=== PATIENT | male | born 1960 | race Caucasian/White ===

== ENCOUNTER 2020-09-07 10:40 | Inpatient (IN) | payer MEDICARE, SELFPAY ==
[2020-09-07] VITALS (54 sets, daily range): BP systolic 148–194; BP diastolic 79–120; PULSE 63–96; RESP 12–25; TEMP 36.4–36.8; O2SAT 91–100
--- NOTE | 2020-09-07 10:53 | CT_ITS ---
WS: [id number] CT HEAD NONCONTRAST HISTORY: altered mental status TECHNIQUE: Contiguous axial imaging performed through the brain in 2.5 mm imaging. Bone and soft tiss ue windows. Sagittal and coronal reformats reviewed. All CT scans at [facility] use at ast one of these dose optimization techniques: automated exposure control; mA and/or kV adjustment pe r patient size (includes targeted exams where dose is matched to clinical indication); or iterative r econstruction. DLP: 872.98 mGy.cm COMPARISON: None available. No acute intracranial hemorrhage, midline shift or mass effect. Mild atrophy and mild chronic microvascular ischemic disease. Ventricles: Normal size with no hydrocephalus. Paranasal sinuses: As visualized are clear. Mastoid air cells: Well pneumatized. Calvarium and scalp: RIGHT frontotemporal craniotomy defect. CT/CT head wo con* [id number] IMPRESSION: 1. No acute intracranial hemorrhage or edema. 2. RIGHT frontoparietal craniotomy defect.
--- NOTE | 2020-09-07 10:53 | XR_ITS ---
WS: [id number] PORTABLE CHEST HISTORY: dyspnea/cough COMPARISON: 06/10/2009 Mild pneumonitis at the lung bases, LEFT greater than RIGHT. Normal vasculature. No pleural effusion or pneumothorax. Cardiac size: Mildly enlarged cardiac silhouette. Mediastinum/Aorta: Mild atherosclerosis aorta. No osseous abnormality seen. XR/XR chest 1V portable [id number] IMPRESSION: Mild bibasilar pneumonitis new since 06/10/2009.
--- NOTE | 2020-09-07 10:56 | ED_ITS ---
HPI - Overdose General: Chief Complaint: Overdose Stated Complaint: AMS Time Seen by Provider: 09/07/20 10:42 History of Present Illness: HPI Narrative: 60-year-old male presents to the emergency room via EMS with altered mental status. Family called after he had called him telling them he had overdosed on marijuana. When he arrived initially he was not responsive. With stimulation he became little aggressive and EMS ultimately ended up giving 2 mg Ativan. On arrival here he is aware of where he is at but is not aware of the time or conditions of how he came to be here. He really cannot tell me much about any symptoms other than he is cold. He denies any chest pain abdominal pain dysuria urgency frequency vomiting or diarrhea. MD complaint: accidental overdose Review of Systems General: Reports: ROS unobtainable due to mental status Physical Exam Const: COMMON NORMALS: no acute distress GENERAL APPEARANCE: cooperative and comfortable HENMT: COMMON NORMALS: normocephalic, atraumatic and hearing grossly normal bilaterally HEAD & SCALP: normocephalic and atraumatic Neck/C-Spine: COMMON NORMALS: no JVD Resp: COMMON NORMALS: normal respiratory effort, No retractions, No use of accessory muscles and clear to auscultation bilaterally AUSCULTATION: clear to auscultation bilaterally Cardio: COMMON NORMALS: no JVD, regular rate, regular rhythm and No murmurs present (Cardio) RATE: regular rate RHYTHM: regular rhythm GI: COMMON NORMALS: Soft to palpation and No hepatosplenomegaly present AUSCULTATION: Yes normoactive bowel sounds PALPATION: Yes Soft to palpation, No Tenderness to palpation present (GI), No Guarding due to palpation present (GI) and Yes No hepatosplenomegaly present Extremity: COMMON NORMALS: normal to inspection, capillary refill normal, no clubbing, cyanosis or edema, no calf tenderness and no pedal edema Skin: COMMON NORMALS: no rashes or lesions noted GENERAL SKIN EXAM: no rashes or lesions noted Course Vital Signs: Vital signs: Vital Signs Temperature 99.2 F 09/08/20 09:52 Pulse Rate 63 09/08/20 13:05 Respiratory Rate 20 H 09/08/20 13:05 Blood Pressure 206/94 09/08/20 13:05 Pulse Oximetry 92 09/08/20 13:00 MDM - Overdose MDM Narrative: Medical decision making narrative: She was initially difficult to arouse by EMS then became actually little bit aggressive is given Ativan while he was here after the work-up he actually got more more awake and then had a witnessed seizure that lasted for approximately 2 minutes. He was given more Ativan and loaded with Keppra. Will admit him to the ICU he has an acute metabolic encephalopathy as well. Cussed with Dr. Kwon. Lab Data: Labs: Lab Results 09/07/20 09/07/20 09/07/20 Range/Units 11:04 11:04 11:04 WBC 3.9 L (4.0-10.0) 10^3/ uL RBC 3.67 L (4.1-5.3) 10^6/u L Hgb 11.6 L (11.7-16.6) g/dL Hct 35.1 L (42.0-52.0) % MCV 95.6 H (80-94) fL MCH 31.6 (28.0-34.0) pg MCHC 33.0 (30.0-36.0) g/dL RDW 12.6 (12.1-15.1) % Plt Count 146 (130-400) 10^3/c mm MPV 12.2 H (7.4-10.4) fL Neut % (Auto) 51.1 % Lymph % (Auto) 35.8 % Dare % (Auto) 7.4 % Eos % (Auto) 4.1 % Baso % (Auto) 0.8 % Neut # (Auto) 2.00 (1.8-7.7) 10^3/u L Lymph # (Auto) 1.4 (0.8-4.8) 10^3/u L Dare # (Auto) 0.3 (0.2-0.9) 10^3/u L Eos # (Auto) 0.2 (0.0-0.8) 10^3/u L Baso # (Auto) 0.0 (0.0-0.1) 10^3/u L Nucleated RBC % (a uto) 0 % Nucleated RBCs # 0.0 /100WBC Specimen Type Sample Site ABG pH (7.35-7.45) ABG pCO2 (35-45) mmHg ABG pO2 (80.0-100.0) mmH g ABG HCO3 (22-26) mmol/L ABG O2 Saturation ABG Base Excess (-2.0-2.0) mmol/ L Logan Test A-a O2 Gradient (5-10) mmHg Hematocrit (42-52) % Hgb O2 Saturation (95-100) % Carboxyhemoglobin (0.4-20.1) %THgb Methemoglobin (0.4-1.5) % Total Hemoglobin (14-18) g/dL Ionized Calcium (1.1-1.4) mmol/L O2 Delivery Device Surface Hydrologist ID Sodium 137 (136-145) mmol/L Potassium 3.0 L (3.5-5.1) mmol/L Chloride 99 (98-107) mmol/L Carbon Dioxide 21 L (22-29) mmol/L Anion Gap 20.0 H (5-19) BUN 13 (8-23) mg/dL Creatinine 1.1 (0.7-1.2) mg/dL GFR Calculation 67.8 L (90-130) mL/min Glucose 118 H (65-115) mg/dL Calculated Osmolal ity 285 (285-295) mOsm/k g Lactic Acid (0.5-2.2) mmol/L Calcium 9.2 (8.5-10.5) mg/dL Magnesium 2.3 (1.7-2.3) mg/dL Total Bilirubin 0.2 (0.15-1.2) mg/dL AST 54 H (0-40) U/L ALT 32 (0-41) U/L Alkaline Phosphata se 51 (40-130) IU/L Creatine Kinase (39-308) U/L Total Protein 7.3 (6.6-8.7) g/dL Albumin 4.3 (3.5-5.2) g/dL Globulin 3.0 (1.3-4.6) g/dL Lipase 33 (13-60) U/L Urine Color (Yellow) Urine Appearance (CLEAR) Urine pH (5-7) Ur Specific Gravit y (1.005-1.030) Urine Protein (Negative) Urine Glucose (UA) (Normal) Urine Ketones (Negative) Urine Blood (Negative) Urine Nitrate (Negative) Urine Bilirubin (Negative) Urine Urobilinogen (Negative) mg/dL Ur Leukocyte Cass ase (Negative) Urine Opiates Scre en (Negative) ng/mL Ur Barbiturates Sc reen (Negative) ng/mL Ur Phencyclidine S crn (Negative) ng/mL Ur Amphetamines Sc reen (Negative) ng/mL U Benzodiazepines Scrn (Negative) ng/mL Urine Cocaine Scre en (Negative) ng/mL U Marijuana (THC) Screen (Negative) ng/mL Serum Ketones Negative (Negative) 09/07/20 09/07/20 09/07/20 Range/Units 11:04 11:04 11:28 WBC (4.0-10.0) 10^3/ uL RBC (4.1-5.3) 10^6/u L Hgb (11.7-16.6) g/dL Hct (42.0-52.0) % MCV (80-94) fL MCH (28.0-34.0) pg MCHC (30.0-36.0) g/dL RDW (12.1-15.1) % Plt Count (130-400) 10^3/c mm MPV (7.4-10.4) fL Neut % (Auto) % Lymph % (Auto) % Dare % (Auto) % Eos % (Auto) % Baso % (Auto) % Neut # (Auto) (1.8-7.7) 10^3/u L Lymph # (Auto) (0.8-4.8) 10^3/u L Dare # (Auto) (0.2-0.9) 10^3/u L Eos # (Auto) (0.0-0.8) 10^3/u L Baso # (Auto) (0.0-0.1) 10^3/u L Nucleated RBC % (a uto) % Nucleated RBCs # /100WBC Specimen Type Sample Site ABG pH (7.35-7.45) ABG pCO2 (35-45) mmHg ABG pO2 (80.0-100.0) mmH g ABG HCO3 (22-26) mmol/L ABG O2 Saturation ABG Base Excess (-2.0-2.0) mmol/ L Logan Test A-a O2 Gradient (5-10) mmHg Hematocrit (42-52) % Hgb O2 Saturation (95-100) % Carboxyhemoglobin (0.4-20.1) %THgb Methemoglobin (0.4-1.5) % Total Hemoglobin (14-18) g/dL Ionized Calcium (1.1-1.4) mmol/L O2 Delivery Device Surface Hydrologist ID Sodium (136-145) mmol/L Potassium (3.5-5.1) mmol/L Chloride (98-107) mmol/L Carbon Dioxide (22-29) mmol/L Anion Gap (5-19) BUN (8-23) mg/dL Creatinine (0.7-1.2) mg/dL GFR Calculation (90-130) mL/min Glucose (65-115) mg/dL Calculated Osmolal ity (285-295) mOsm/k g Lactic Acid 6.2 H* (0.5-2.2) mmol/L Calcium (8.5-10.5) mg/dL Magnesium (1.7-2.3) mg/dL Total Bilirubin (0.15-1.2) mg/dL AST (0-40) U/L ALT (0-41) U/L Alkaline Phosphata se (40-130) IU/L Creatine Kinase 1879 H* (39-308) U/L Total Protein (6.6-8.7) g/dL Albumin (3.5-5.2) g/dL Globulin (1.3-4.6) g/dL Lipase (13-60) U/L Urine Color Yellow (Yellow) Urine Appearance Clear (CLEAR) Urine pH 5 (5-7) Ur Specific Gravit y 1.020 (1.005-1.030) Urine Protein Neg (Negative) Urine Glucose (UA) Norm (Normal) Urine Ketones Negative (Negative) Urine Blood Neg (Negative) Urine Nitrate Negative (Negative) Urine Bilirubin Neg (Negative) Urine Urobilinogen Norm (Negative) mg/dL Ur Leukocyte Cass ase Negative (Negative) Urine Opiates Scre en (Negative) ng/mL Ur Barbiturates Sc reen (Negative) ng/mL Ur Phencyclidine S crn (Negative) ng/mL Ur Amphetamines Sc reen (Negative) ng/mL U Benzodiazepines Scrn (Negative) ng/mL Urine Cocaine Scre en (Negative) ng/mL U Marijuana (THC) Screen (Negative) ng/mL Serum Ketones (Negative) 09/07/20 09/07/20 Range/Units 11:28 11:58 WBC (4.0-10.0) 10^3/ uL RBC (4.1-5.3) 10^6/u L Hgb (11.7-16.6) g/dL Hct (42.0-52.0) % MCV (80-94) fL MCH (28.0-34.0) pg MCHC (30.0-36.0) g/dL RDW (12.1-15.1) % Plt Count (130-400) 10^3/c mm MPV (7.4-10.4) fL Neut % (Auto) % Lymph % (Auto) % Dare % (Auto) % Eos % (Auto) % Baso % (Auto) % Neut # (Auto) (1.8-7.7) 10^3/u L Lymph # (Auto) (0.8-4.8) 10^3/u L Dare # (Auto) (0.2-0.9) 10^3/u L Eos # (Auto) (0.0-0.8) 10^3/u L Baso # (Auto) (0.0-0.1) 10^3/u L Nucleated RBC % (a uto) % Nucleated RBCs # /100WBC Specimen Type Arterial Sample Site Left radial ABG pH 7.46 H (7.35-7.45) ABG pCO2 34.4 L (35-45) mmHg ABG pO2 72.5 L (80.0-100.0) mmH g ABG HCO3 24.2 (22-26) mmol/L ABG O2 Saturation 96.7 ABG Base Excess 0.6 (-2.0-2.0) mmol/ L Logan Test Pos A-a O2 Gradient 4.6 L (5-10) mmHg Hematocrit 36.0 L (42-52) % Hgb O2 Saturation 94.0 L (95-100) % Carboxyhemoglobin 1.8 (0.4-20.1) %THgb Methemoglobin 0.9 (0.4-1.5) % Total Hemoglobin 11.7 L (14-18) g/dL Ionized Calcium 1.2 (1.1-1.4) mmol/L O2 Delivery Device Surface Hydrologist ID [place]ro Sodium 139.0 (136-145) mmol/L Potassium 3.1 L (3.5-5.1) mmol/L Chloride (98-107) mmol/L Carbon Dioxide (22-29) mmol/L Anion Gap (5-19) BUN (8-23) mg/dL Creatinine (0.7-1.2) mg/dL GFR Calculation (90-130) mL/min Glucose 120.0 H (65-115) mg/dL Calculated Osmolal ity (285-295) mOsm/k g Lactic Acid (0.5-2.2) mmol/L Calcium (8.5-10.5) mg/dL Magnesium (1.7-2.3) mg/dL Total Bilirubin (0.15-1.2) mg/dL AST (0-40) U/L ALT (0-41) U/L Alkaline Phosphata se (40-130) IU/L Creatine Kinase (39-308) U/L Total Protein (6.6-8.7) g/dL Albumin (3.5-5.2) g/dL Globulin (1.3-4.6) g/dL Lipase (13-60) U/L Urine Color (Yellow) Urine Appearance (CLEAR) Urine pH (5-7) Ur Specific Gravit y (1.005-1.030) Urine Protein (Negative) Urine Glucose (UA) (Normal) Urine Ketones (Negative) Urine Blood (Negative) Urine Nitrate (Negative) Urine Bilirubin (Negative) Urine Urobilinogen (Negative) mg/dL Ur Leukocyte Cass ase (Negative) Urine Opiates Scre en Negative (Negative) ng/mL Ur Barbiturates Sc reen Negative (Negative) ng/mL Ur Phencyclidine S crn Negative (Negative) ng/mL Ur Amphetamines Sc reen Negative (Negative) ng/mL U Benzodiazepines Scrn Negative (Negative) ng/mL Urine Cocaine Scre en Negative (Negative) ng/mL U Marijuana (THC) Screen Positive H (Negative) ng/mL Serum Ketones (Negative) Discharge Plan Discharge Patient Disposition: Admitted As Inpatient Admit Provider: Brock Kwon Clinical Impression: Cannabis use disorder, mild, abuse, Acute metabolic encephalopathy, Seizure, Hypokalemia, Pneumonia, Lactic acidosis Condition: Stable Coding Level of Care Code 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
[2020-09-07 11:22] LABS: Basophils % 0.8 %; Eosinophils # 0.2 10^3/uL (0.0-0.8); Eosinophils % 4.1 %; Hematocrit 35.1 % (42.0-52.0); Hemoglobin 11.6 g/dL (11.7-16.6); Lymphocytes # 1.4 10^3/uL (0.8-4.8); Lymphocytes % 35.8 %; Mean Corpuscular Hemoglobin 31.6 pg (28.0-34.0); Mean Corpuscular Volume 95.6 fL (80-94); Mean Platelet Volume 12.2 fL (7.4-10.4); Monocytes # 0.3 10^3/uL (0.2-0.9); Monocytes % 7.4 %; Neutrophils % 51.1 %; Nucleated Red Blood Cells % 0 %; Platelet Count 146 10^3/cmm (130-400); Red Blood Count 3.67 10^6/uL (4.1-5.3); Red Cell Distribution Width 12.6 % (12.1-15.1); White Blood Count 3.9 10^3/uL (4.0-10.0)
[2020-09-07 11:26] LABS: Ketone (Acetest) Serum Negative (Negative)
[2020-09-07 11:31] LABS: Add Urine Microscopic? NO
[2020-09-07 11:35] LABS: Alanine Aminotransferase 32 U/L (0-41); Albumin Level 4.3 g/dL (3.5-5.2); Alkaline Phosphatase 51 IU/L (40-130); Aspartate Amino Transferase 54 U/L (0-40); Blood Urea Nitrogen 13 mg/dL (8-23); Calcium 9.2 mg/dL (8.5-10.5); Carbon Dioxide 21 mmol/L (22-29); Chloride 99 mmol/L (98-107); Glomerular Filtration Rate 67.8 mL/min (90-130); Glucose 118 mg/dL (65-115); Lipase 33 U/L (13-60); Magnesium 2.3 mg/dL (1.7-2.3); Osmolality Calculated 285 mOsm/kg (285-295); Sodium 137 mmol/L (136-145); Total Bilirubin 0.2 mg/dL (0.15-1.2); Total Protein 7.3 g/dL (6.6-8.7)
[2020-09-07 11:36] LABS: Bilirubin Urine Neg (Negative); Blood Urine Neg (Negative); Glucose Urine UA Norm (Normal); Ketones Urine Negative (Negative); Leukocyte Esterase Urine Negative (Negative); Nitrate Urine Negative (Negative); Protein Urine Neg (Negative); Urine Appearance Clear (CLEAR); Urine Color Yellow (Yellow); Urobilinogen Urine Norm (Negative); pH Urine 5 (5-7)
[2020-09-07 11:41] LABS: Lactic Sepsis W/Reflex 6.2 mmol/L (0.5-2.2)
[2020-09-07 11:44] LABS: Amphetamines Screen Urine Negative (Negative); Barbiturates Screen Urine Negative (Negative); Benzodiazepines Screen Urine Negative (Negative); Cocaine Screen Urine Negative (Negative); Opiate Screen Urine Negative (Negative); PCP Screen Urine Negative (Negative); THC Screen Urine Positive (Negative)
[2020-09-07] MEDS: levofloxacin-dextrose 5 % 750 MG/150 ML PREMIX 100 MG IV (12:10)
[2020-09-07 12:12] LABS: ABG PCO2 34.4 mmHg (35-45); Base Excess ABG 0.6 mmol/L (-2.0-2.0); HCO3 ABG 24.2 mmol/L (22-26); Oxygen Saturation ABG 96.7; PO2 ABG 72.5 mmHg (80.0-100.0)
[2020-09-07 12:13] LABS: Blood Gas Operator Identificat MONRO; Blood Gas Sample Site LEFT RADIAL; Potassium Level - ABG 3.1 mmol/L (3.5-5.0)
[2020-09-07] MEDS: sodium chloride 0.9% 1,000 ML 999 ML IV (12:13)
[2020-09-07 12:14] LABS: Carboxyhemoglobin 1.8 %THgb (0.4-20.1); Ionized Calcium Level - ABG 1.2 mmol/L (1.1-1.4); Methemoglobin 0.9 % (0.4-1.5); Total Hemoglobin 11.7 g/dL (14-18)
[2020-09-07 13:06] LABS: Reflex Lactate Order REFLEX LACTIC ORDERD
[2020-09-07] MEDS: LORazepam 2 mg/mL INJ 1 mL IVP (13:30)
[2020-09-07] MEDS: lidocaine 1% 5 ML in potassium chloride premix 100 ML 25 ML IV (13:53)
[2020-09-07 14:16] LABS: ABG PH Result 7.46 (7.35-7.45); Alveolar-Arterial Oxygen Gradi 4.6 mmHg (5-10); Blood Gas Allen Test Pos; Blood Gas Sample Type Arterial
[2020-09-07 15:03] LABS: Creatine Phosphokinase 1879 U/L (39-308)
[2020-09-07 15:29] LABS: Lactic Acid level (Lactate) 3.1 mmol/L (0.5-2.2)
--- NOTE | 2020-09-07 16:19 | P.HP_ITS ---
Providers/Chief Complaint Admitting Physician: Brock Kwon MD Chief Complaint: AMS History of Present Illness 60-year-old male presents was brought in by the EMS after he called his family and informed them that he overdosed marijuana H/O was not possible at the patient was deep asleep and on attempt to awake he refused to participate.Information gathered by ER chart review. When he arrived initially he was not responsive.With stimulation he became little aggressive and EMS ultimately ended up giving 2 mg Ativan.On arrival in the ER patient was aware of where he is at but is not aware of the time or conditions of how he came to be here.He really cannot tell me much about any symptoms other than he is cold.He denied any chest pain abdominal pain dysuria urgency frequency vomiting or diarrhea.In the Er he had a witnessed seizure like episode and was lodaed with Keppra 1 gm I.V * 1 Dose. as well as ativan 2 mg I.V * 1 Dose. He also received levofloxacin 750 mg I.V * 1 dose. C.T head without contrast ; Done in Er Failed to show any acute intrcranial pathology. Xray chest : Mild bibasilar pneumonitis . EKG : Pertinent labs : Lactic acid : 6.2 repaet lactate : 3.1 , CK : 1879 , K : 3 , U/A : Clean , Utox: Marijuana , ABG : Ph : 7.46,PCO2: 34, PO2: 72 Blood Cultures sent Review of Systems Narrative: Cannot be obtained as the person is sleepy and not willing to participate Medications/Allergies Home Medications Medication Instructions Recorded Confirmed Last Taken Type Unable to Assess 09/07/20 09/07/20 Unknown History Vitals/I&O/Wt Last Vital Signs Temp 97.5 F L 09/07/20 10:41 Pulse 95 09/07/20 13:55 Resp 22 H 09/07/20 13:55 BP 194/95 09/07/20 13:55 Pulse Ox 100 09/07/20 13:55 09/07/20 09/07/20 09/07/20 06:59 14:59 22:59 Intake Total 1260 / 1260 Balance 1260 / 1260 Weight last 48 hrs Weight 102.058 kg Physical Exam HENMT: COMMON NORMALS: normocephalic and atraumatic HEAD & SCALP: normocephalic and atraumatic Resp: COMMON NORMALS: clear to auscultation bilaterally AUSCULTATION: clear to auscultation bilaterally Cardio: COMMON NORMALS: regular rate, regular rhythm, S1 normal heart sound present, S2 normal heart sound present, No gallops present (Cardio), No murmurs present (Cardio), No rub (Cardio) and Peripheral pulses 2+ throughout RATE: regular rate RHYTHM: regular rhythm HEART SOUNDS: S1 normal heart sound present and S2 normal heart sound present PERIPHERAL PULSES: Peripheral pulses 2+ throughout GI: COMMON NORMALS: Soft to palpation, non-tender, No hepatosplenomegaly present and no masses AUSCULTATION: Yes normoactive bowel sounds PALPATION: Yes Soft to palpation and Yes No hepatosplenomegaly present RECTAL EXAM: Yes deferred Extremity: COMMON NORMALS: no clubbing, cyanosis or edema and no pedal edema Data : 09/07/20 11:04 09/07/20 11:04 Micro: Microbiology 09/07/20 12:10 Blood Culture - Preliminary Blood SPECIMEN COLLECTED 09/07/20 11:55 Blood Culture - Preliminary Blood SPECIMEN COLLECTED A&P Assessment and plan (1) Acute metabolic encephalopathy: Ac Encephalopathy toxic/Metabolic Currently patient is deep asleep. Continue with I.V Hydration Correct electrolyte imbalance Follow cultures Levofloxacin 750 mg I.V daily Continue to monitor the mentation. Status: Acute (2) Seizure: Likely 2/2 to drug overdose S/P 1 gm keppra in ER. Has no prior episode of seizure. Will continue to monitor for now' Ativan PRN, Status: Acute (3) Pneumonia: Aspiration PNA/Pneumonitis. Plan as 1 Status: Acute (4) Elevated creatine kinase: Continue I.V Hydration with D 5 1/2 ns @125 CC /HR Status: Acute (5) Drug overdose: Status: Acute (6) Lactic acidosis: Status: Acute (7) Hypokalemia: Status: Acute Additional A&P Information DVT PPX: Lovenox 40 mg sc daily Code status : Disposition Attestations Medical Necessity Statement*: Patient needs to be in hospital for the management of Ac Encephalopathy Coding Level of Care Code Acute Service Car Driver for [facility] Fwd Diagnoses Acute metabolic encephalopathy G93.41 Seizure R56.9 Pneumonia J18.9 Elevated creatine kinase R74.8 Drug overdose T50.901A Lactic acidosis E87.2 Hypokalemia E87.6
[2020-09-07] MEDS: dextrose 5%-sod chloride 0.45% 1,000 ML 125 ML IV (19:01)
[2020-09-08] VITALS (27 sets, daily range): BP systolic 159–206; BP diastolic 78–109; PULSE 57–85; RESP 14–26; TEMP 36.7–37.3; O2SAT 91–98
[2020-09-08] MEDS: dextrose 5%-sod chloride 0.45% 1,000 ML 125 ML IV ×3 (03:54→19:16)
--- NOTE | 2020-09-08 03:55 | PC.NURSE ---
Previous bag of IVF not completed
[2020-09-08 05:20] LABS: Basophils % 0.8 %; Eosinophils # 0.2 10^3/uL (0.0-0.8); Eosinophils % 3.3 %; Hematocrit 34.4 % (42.0-52.0); Hemoglobin 11.7 g/dL (11.7-16.6); Lymphocytes # 1.2 10^3/uL (0.8-4.8); Lymphocytes % 23.8 %; Mean Corpuscular Hemoglobin 32.1 pg (28.0-34.0); Mean Corpuscular Volume 94.2 fL (80-94); Mean Platelet Volume 12.6 fL (7.4-10.4); Monocytes # 0.4 10^3/uL (0.2-0.9); Monocytes % 7.3 %; Neutrophils # 3.17 10^3/uL (1.8-7.7); Neutrophils % 64.4 %; Nucleated Red Blood Cells % 0 %; Platelet Count 159 10^3/cmm (130-400); Red Blood Count 3.65 10^6/uL (4.1-5.3); Red Cell Distribution Width 12.7 % (12.1-15.1); White Blood Count 4.9 10^3/uL (4.0-10.0)
[2020-09-08 05:23] LABS: INR 1.09 (0.8-1.2)
[2020-09-08 05:46] LABS: Procalcitonin 0.06 ng/mL (0-0.5)
[2020-09-08 05:48] LABS: Alanine Aminotransferase 35 U/L (0-41); Albumin Level 4.1 g/dL (3.5-5.2); Alkaline Phosphatase 52 IU/L (40-130); Anion Gap 12.4 (5-19); Aspartate Amino Transferase 85 U/L (0-40); Blood Urea Nitrogen 8 mg/dL (8-23); Calcium 8.6 mg/dL (8.5-10.5); Carbon Dioxide 25 mmol/L (22-29); Chloride 99 mmol/L (98-107); Glomerular Filtration Rate 85.5 mL/min (90-130); Glucose 109 mg/dL (65-115); Magnesium 2.2 mg/dL (1.7-2.3); Osmolality Calculated 275 mOsm/kg (285-295); Potassium 3.4 mmol/L (3.5-5.1); Sodium 133 mmol/L (136-145); Thyroid Stimulating Hormone 15.87 uIU/mL (0.27-4.20); Total Bilirubin 0.4 mg/dL (0.15-1.2); Total Protein 7.1 g/dL (6.6-8.7)
[2020-09-08] MEDS: amlodipine 5 mg Tablet PO ×2 (09:47→13:22)
--- NOTE | 2020-09-08 10:50 | PC.NURSE ---
when asked states he takes marijuna by pipe. states he is non suicidal. states my daughter is my reason to live.
[2020-09-08 11:22] LABS: Lactic Sepsis W/Reflex 0.9 mmol/L (0.5-2.2)
[2020-09-08 12:13] LABS: Creatine Phosphokinase 8031 U/L (39-308)
[2020-09-08] MEDS: levofloxacin-dextrose 5 % 750 MG/150 ML PREMIX 100 MG IV (13:23)
--- NOTE | 2020-09-08 13:39 | PM.PN ---
Subjective Subjective: Interval history: Patient was seen and examined this morning. He was resting comfortably in the chair. He was inquiring that when he came to the hospital, and also wanted to talk to his daughter.Still slightly confused, wanted to know what time it is.He Also had episode of vomiting this morning. Other vitals and labs have been reviewed. Vitals/I&O/Wt Last Vital Signs Temp 99.2 F 09/08/20 09:52 Pulse 63 09/08/20 13:05 Resp 20 H 09/08/20 13:05 BP 206/94 09/08/20 13:05 Pulse Ox 92 09/08/20 13:00 09/07/20 09/08/20 09/08/20 22:59 06:59 14:59 Intake Total 52.917 / 8172.238 6656 / 2552.917 1000 / 1000 Balance 52.917 / 4178.580 6465 / 2552.917 1000 / 1000 Weight last 48 hrs Weight 102.058 kg Weight 102.058 kg Physical Exam Narrative: EXAM NARRATIVE: Awake and alert, oriented to self and place HENMT: COMMON NORMALS: normocephalic and atraumatic HEAD & SCALP: normocephalic and atraumatic Resp: COMMON NORMALS: clear to auscultation bilaterally AUSCULTATION: clear to auscultation bilaterally Cardio: COMMON NORMALS: regular rate, regular rhythm, S1 normal heart sound present, S2 normal heart sound present, No gallops present (Cardio), No murmurs present (Cardio), No rub (Cardio) and Peripheral pulses 2+ throughout RATE: regular rate RHYTHM: regular rhythm HEART SOUNDS: S1 normal heart sound present and S2 normal heart sound present PERIPHERAL PULSES: Peripheral pulses 2+ throughout GI: COMMON NORMALS: Soft to palpation, non-tender, No hepatosplenomegaly present and no masses AUSCULTATION: Yes normoactive bowel sounds PALPATION: Yes Soft to palpation and Yes No hepatosplenomegaly present RECTAL EXAM: Yes deferred Extremity: COMMON NORMALS: no clubbing, cyanosis or edema and no pedal edema Data : 09/08/20 04:09 09/08/20 04:09 Micro: Microbiology 09/07/20 12:10 Blood Culture - Preliminary Blood Gram positive cocci 09/07/20 11:55 Blood Culture - Preliminary Blood SPECIMEN COLLECTED A&P Assessment and plan (1) Hypertensive urgency: Blood pressure : 206/94, has no signs of endorgan damage. Started on amlodipine 10 mg p.o. daily Hydralazine 50 mg p.o. 3 times daily Status: Acute (2) Acute metabolic encephalopathy: Ac Encephalopathy toxic/Metabolic patient is deep asleep. Continue with I.V Hydration Correct electrolyte imbalance Follow cultures Levofloxacin 750 mg I.V daily Continue to monitor the mentation. Status: Acute (3) Seizure: Likely 2/2 to drug overdose S/P 1 gm keppra in ER. Has no prior episode of seizure. Will continue to monitor for now' Ativan PRN, Status: Acute (4) Pneumonia: Aspiration PNA/Pneumonitis. Plan as 1 Status: Acute (5) Elevated creatine kinase: CK:1879---> 8031 Continue I.V Hydration with D 5 1/2 ns @150 CC /HR Status: Acute (6) Drug overdose: Status: Acute (7) Lactic acidosis: Status: Acute (8) Hypokalemia: Status: Acute Additional A&P Information DVT PPX: Lovenox 40 mg sc daily Code status : Disposition Attestations Medical Necessity Statement*: Patient is to be in hospital for management of hypertensive urgency, metabolic toxic encephalopathy. 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
[2020-09-08] MEDS: hydrocortisone 1% cream 28 gm 1 APPLIC TOPICAL ×2 (16:12→20:21)
[2020-09-08] MEDS: hyDRALAzine 50 mg Tablet PO ×2 (16:12→20:20)
[2020-09-08] MEDS: sodium chloride 0.9% 1,000 ML 999 ML IV ×2 (17:19→19:04)
[2020-09-08] MEDS: ondansetron 2 mg/ML SDV 2 mL 4 MG IVP (23:58)
[2020-09-09] VITALS (19 sets, daily range): BP systolic 130–198; BP diastolic 50–97; PULSE 56–78; RESP 13–20; TEMP 36.7–37.2; O2SAT 92–96
[2020-09-09] MEDS: dextrose 5%-sod chloride 0.45% 1,000 ML 125 ML IV (02:25)
[2020-09-09 05:41] LABS: Basophils % 0.5 %; Eosinophils # 0.3 10^3/uL (0.0-0.8); Eosinophils % 5.5 %; Hematocrit 35.7 % (42.0-52.0); Hemoglobin 12.8 g/dL (11.7-16.6); Lymphocytes # 1.4 10^3/uL (0.8-4.8); Lymphocytes % 24.6 %; Mean Corpuscular HGB Conc 35.9 g/dL (30.0-36.0); Mean Corpuscular Hemoglobin 31.7 pg (28.0-34.0); Mean Corpuscular Volume 88.4 fL (80-94); Mean Platelet Volume 12.4 fL (7.4-10.4); Monocytes # 0.3 10^3/uL (0.2-0.9); Monocytes % 5.9 %; Neutrophils # 3.53 10^3/uL (1.8-7.7); Neutrophils % 63.1 %; Nucleated Red Blood Cells % 0 %; Platelet Count 196 10^3/cmm (130-400); Red Blood Count 4.04 10^6/uL (4.1-5.3); Red Cell Distribution Width 12.1 % (12.1-15.1); White Blood Count 5.6 10^3/uL (4.0-10.0)
[2020-09-09 06:27] LABS: Alanine Aminotransferase 43 U/L (0-41); Albumin Level 4.4 g/dL (3.5-5.2); Alkaline Phosphatase 59 IU/L (40-130); Anion Gap 11.9 (5-19); Aspartate Amino Transferase 162 U/L (0-40); Blood Urea Nitrogen 4 mg/dL (8-23); Calcium 8.8 mg/dL (8.5-10.5); Carbon Dioxide 24 mmol/L (22-29); Chloride 90 mmol/L (98-107); Globulin 3.3 g/dL (1.3-4.6); Glucose 107 mg/dL (65-115); Osmolality Calculated 253 mOsm/kg (285-295); Sodium 123 mmol/L (136-145); Thyroid Stimulating Hormone 14.69 uIU/mL (0.27-4.20); Total Bilirubin 0.7 mg/dL (0.15-1.2); Total Protein 7.7 g/dL (6.6-8.7)
[2020-09-09 06:28] LABS: Potassium 2.9 mmol/L (3.5-5.1)
[2020-09-09] MEDS: acetaminophen 325 mg Tablet 650 MG PO (07:44)
[2020-09-09] MEDS: lidocaine 1% 5 ML in potassium chloride premix 100 ML 25 ML IV ×2 (07:49→11:33)
[2020-09-09 07:58] LABS: Free T4 Free Thyroxine 0.18 ng/dL (0.82-1.77); T3 Free 0.8 PG/ML (2.0-4.4)
[2020-09-09 08:08] LABS: Creatine Phosphokinase 12146 U/L (39-308)
[2020-09-09] MEDS: amlodipine 5 mg Tablet PO ×2 (08:13→09:37)
[2020-09-09] MEDS: hyDRALAzine 50 mg Tablet PO ×3 (08:13→21:10)
[2020-09-09] MEDS: hydrocortisone 1% cream 28 gm 1 APPLIC TOPICAL ×4 (08:13→21:10)
[2020-09-09] MEDS: potassium chloride ER 20 mEq Tablet 40 MEQ PO (08:56)
[2020-09-09] MEDS: levothyroxine 25 mcg Tablet PO (08:56)
[2020-09-09] MEDS: sodium chloride 0.9% 1,000 ML 150 ML IV ×2 (08:56→18:29)
[2020-09-09] MEDS: labetalol 5 mg/mL SDV 20mL 10 MG IVP (09:37)
[2020-09-09] MEDS: levofloxacin-dextrose 5 % 750 MG/150 ML PREMIX 100 MG IV (11:34)
--- NOTE | 2020-09-09 14:47 | PM.PN ---
Subjective Subjective: Interval history: Patient was seen and examined today.He is doing fine.He is resting comfortably in bed.Tolerating his diet well. Deny any headache,nausea,vomitting,weakness in any body parts,fever,cough,sob.He is alert,awake,oriented. He has remained afebrile His other vitals and labs have been reviewed. Medications: Reviewed: Yes Vitals/I&O/Wt Last Vital Signs Temp 98.0 F 09/09/20 11:06 Pulse 61 09/09/20 11:06 Resp 18 09/09/20 11:06 BP 176/90 09/09/20 11:06 Pulse Ox 95 09/09/20 11:06 09/08/20 09/09/20 09/09/20 22:59 06:59 14:59 Intake Total 3132.5 / 4132.5 1133.75 / 5266.25 1297.916 / 1297.916 Output Total 1250 / 1950 675 / 2625 300 / 300 Balance 1882.5 / 2182.5 458.75 / 2641.25 997.916 / 997.916 Weight last 48 hrs Weight 102.33 kg Weight 102.058 kg Weight 102.058 kg Physical Exam Narrative: EXAM NARRATIVE: Awake and alert, oriented to self and place HENMT: COMMON NORMALS: normocephalic and atraumatic HEAD & SCALP: normocephalic and atraumatic Resp: COMMON NORMALS: clear to auscultation bilaterally AUSCULTATION: clear to auscultation bilaterally Cardio: COMMON NORMALS: regular rate, regular rhythm, S1 normal heart sound present, S2 normal heart sound present, No gallops present (Cardio), No murmurs present (Cardio), No rub (Cardio) and Peripheral pulses 2+ throughout RATE: regular rate RHYTHM: regular rhythm HEART SOUNDS: S1 normal heart sound present and S2 normal heart sound present PERIPHERAL PULSES: Peripheral pulses 2+ throughout GI: COMMON NORMALS: Soft to palpation, non-tender, No hepatosplenomegaly present and no masses AUSCULTATION: Yes normoactive bowel sounds PALPATION: Yes Soft to palpation and Yes No hepatosplenomegaly present RECTAL EXAM: Yes deferred Extremity: COMMON NORMALS: no clubbing, cyanosis or edema and no pedal edema Data : 09/09/20 05:11 09/09/20 16:35 Micro: Microbiology 09/07/20 12:10 Blood Culture - Preliminary Blood Staphylococcus aureus Gram positive francesco 09/07/20 11:55 Blood Culture - Preliminary Blood NEGATIVE TO DATE A&P Assessment and plan (1) Hypertensive urgency: Currently blood Pressure is well controlled. Amlodipine 10 mg po daily Clonidine 0.1 mg po TID Hydralazine 50 mg PO TID Labetalol I.V PRN Status: Acute (2) Acute metabolic encephalopathy: Ac Encephalopathy toxic/Metabolic Currently patient is deep asleep. Continue with I.V Hydration Correct electrolyte imbalance Follow cultures Levofloxacin 750 mg I.V daily Continue to monitor the mentation. Status: Acute (3) Rhabdomyolysis: [place] [id number] Continue NS @ 150 CC/HR Monitor electrolytes and Kidney function. Status: Acute (4) Hypothyroidism: TSH : 15 Repaet TSH : 14.69 Free T4 : 0.18 Free T3: 0.8 Levothyroxine 25 mcg po Daily Repeat TSH in 6 weeks . For dose adjustment Status: Acute (5) Seizure: Likely 2/2 to drug overdose S/P 1 gm keppra in ER. Has no prior episode of seizure. Will continue to monitor for now' Ativan PRN, Status: Acute (6) Pneumonia: Aspiration PNA/Pneumonitis. Plan as 1 Status: Acute (7) Drug overdose: Status: Acute (8) Lactic acidosis: Status: Acute (9) Hyponatremia: Status: Acute (10) Hypokalemia: Status: Acute Additional A&P Information DVT PPX: Lovenox 40 mg sc daily Code status : Disposition Attestations Medical Necessity Statement*: Patient needs to be in hospital for the management of Rhabdomyolysis,Uncontrolled HTN,Hyponatremia Coding Level of Care Code Acute Pharmacy Services Director for [facility] Fwd Diagnoses Hypertensive urgency I16.0 Acute metabolic encephalopathy G93.41 Rhabdomyolysis M62.82 Hypothyroidism E03.9 Seizure R56.9 Pneumonia J18.9 Drug overdose T50.901A Lactic acidosis E87.2 Hyponatremia E87.1 Hypokalemia E87.6
[2020-09-09] MEDS: cloNIDine 0.1 mg Tablet PO ×2 (15:57→21:10)
[2020-09-09 17:10] LABS: Lactate (Lactic Acid level) 0.7 mmol/L (0.5-2.2)
[2020-09-09 17:12] LABS: Anion Gap 10.7 (5-19); Blood Urea Nitrogen 4 mg/dL (8-23); Calcium 8.9 mg/dL (8.5-10.5); Carbon Dioxide 23 mmol/L (22-29); Chloride 91 mmol/L (98-107); Glucose 91 mg/dL (65-115); Osmolality Calculated 248 mOsm/kg (285-295); Potassium 3.7 mmol/L (3.5-5.1); Sodium 121 mmol/L (136-145)
[2020-09-09 18:02] LABS: Creatine Phosphokinase 11035 U/L (39-308)
[2020-09-09] MEDS: enoxaparin 40 mg/0.4 mL Syringe SUBCUT (21:09)
[2020-09-10] VITALS (12 sets, daily range): BP systolic 125–158; BP diastolic 63–81; PULSE 62–70; RESP 17–18; TEMP 36.4–37.4; O2SAT 94–97
[2020-09-10] MEDS: sodium chloride 0.9% 1,000 ML 150 ML IV ×2 (02:47→09:06)
[2020-09-10 04:57] LABS: Basophils % 0.9 %; Eosinophils # 0.3 10^3/uL (0.0-0.8); Eosinophils % 6.8 %; Hematocrit 33.7 % (42.0-52.0); Lymphocytes # 1.2 10^3/uL (0.8-4.8); Lymphocytes % 28.1 %; Mean Corpuscular HGB Conc 35.6 g/dL (30.0-36.0); Mean Corpuscular Hemoglobin 31.7 pg (28.0-34.0); Mean Corpuscular Volume 88.9 fL (80-94); Mean Platelet Volume 11.8 fL (7.4-10.4); Monocytes # 0.3 10^3/uL (0.2-0.9); Monocytes % 7.5 %; Neutrophils % 56.5 %; Nucleated Red Blood Cells % 0 %; Platelet Count 191 10^3/cmm (130-400); Red Blood Count 3.79 10^6/uL (4.1-5.3); White Blood Count 4.4 10^3/uL (4.0-10.0)
[2020-09-10 05:14] LABS: Alanine Aminotransferase 49 U/L (0-41); Albumin Level 4.1 g/dL (3.5-5.2); Alkaline Phosphatase 54 IU/L (40-130); Anion Gap 12.7 (5-19); Aspartate Amino Transferase 164 U/L (0-40); Blood Urea Nitrogen 6 mg/dL (8-23); Calcium 8.7 mg/dL (8.5-10.5); Carbon Dioxide 21 mmol/L (22-29); Chloride 92 mmol/L (98-107); Globulin 2.9 g/dL (1.3-4.6); Glucose 79 mg/dL (65-115); Osmolality Calculated 251 mOsm/kg (285-295); Potassium 3.7 mmol/L (3.5-5.1); Sodium 122 mmol/L (136-145); Total Bilirubin 0.7 mg/dL (0.15-1.2)
[2020-09-10 05:30] LABS: Creatine Phosphokinase 11929 U/L (39-308)
[2020-09-10] MEDS: levothyroxine 25 mcg Tablet PO (06:19)
[2020-09-10] MEDS: hyDRALAzine 50 mg Tablet PO ×2 (09:05→15:00)
[2020-09-10] MEDS: cloNIDine 0.1 mg Tablet PO ×3 (09:05→21:50)
[2020-09-10] MEDS: hydrocortisone 1% cream 28 gm 1 APPLIC TOPICAL ×3 (09:06→17:11)
[2020-09-10] MEDS: amlodipine 5 mg Tablet 10 MG PO (09:06)
[2020-09-10] MEDS: sodium chloride 0.9% 1,000 ML 999 ML IV ×2 (10:10→17:59)
--- NOTE | 2020-09-10 11:31 | DCPLANNER ---
Pg 2 of IM updated and reviewed with pt. He's never heard of it but ok. Copy provided.
[2020-09-10] MEDS: levofloxacin-dextrose 5 % 750 MG/150 ML PREMIX 100 MG IV (13:57)
[2020-09-10 17:00] LABS: Anion Gap 13.4 (5-19); Blood Urea Nitrogen 6 mg/dL (8-23); Calcium 8.9 mg/dL (8.5-10.5); Carbon Dioxide 20 mmol/L (22-29); Chloride 91 mmol/L (98-107); Glucose 88 mg/dL (65-115); Osmolality Calculated 249 mOsm/kg (285-295); Potassium 3.4 mmol/L (3.5-5.1); Sodium 121 mmol/L (136-145)
[2020-09-10 17:44] LABS: Creatine Phosphokinase 13459 U/L (39-308)
--- NOTE | 2020-09-10 17:46 | PC.NURSE ---
[place] [id number].
--- NOTE | 2020-09-10 17:54 | PC.NURSE ---
Rcvd order from Dr Kwon to bolus patient with 1L bolus of NS and then run NS at 200ml/hr.
--- NOTE | 2020-09-10 19:13 | P.PN_ITS ---
Subjective Subjective: Interval history: Patient was seen and examined this morning.Has done well so far,no active complain.slept well last night. CPK is again trending up.Electrolytes and kidney function remain stable. His other vitals and labs have been reviewed. Medications: Reviewed: Yes Vitals/I&O/Wt Last Vital Signs Temp 99.1 F 09/10/20 15:54 Pulse 68 09/10/20 15:54 Resp 18 09/10/20 15:54 BP 125/78 09/10/20 15:54 Pulse Ox 94 09/10/20 15:54 09/10/20 09/10/20 09/10/20 06:59 14:59 22:59 Intake Total 1782.5 / 4545.416 1775 / 1775 650 / 2425 Output Total 1525 / 2465 500 / 500 100 / 600 Balance 257.5 / 2080.416 1275 / 1275 550 / 1825 Weight last 48 hrs Weight 102.603 kg Weight 102.33 kg Physical Exam Narrative: EXAM NARRATIVE: Awake and alert, oriented to self and place HENMT: COMMON NORMALS: normocephalic and atraumatic HEAD & SCALP: normocephalic and atraumatic Resp: COMMON NORMALS: clear to auscultation bilaterally AUSCULTATION: clear to auscultation bilaterally Cardio: COMMON NORMALS: regular rate, regular rhythm, S1 normal heart sound present, S2 normal heart sound present, No gallops present (Cardio), No murmurs present (Cardio), No rub (Cardio) and Peripheral pulses 2+ throughout RATE: regular rate RHYTHM: regular rhythm HEART SOUNDS: S1 normal heart sound present and S2 normal heart sound present PERIPHERAL PULSES: Peripheral pulses 2+ throughout GI: COMMON NORMALS: Soft to palpation, non-tender, No hepatosplenomegaly present and no masses AUSCULTATION: Yes normoactive bowel sounds PALPATION: Yes Soft to palpation and Yes No hepatosplenomegaly present RECTAL EXAM: Yes deferred Extremity: COMMON NORMALS: no clubbing, cyanosis or edema and no pedal edema Data : 09/10/20 04:34 09/10/20 16:28 Micro: Microbiology 09/10/20 09:40 Blood Culture - Preliminary Blood SPECIMEN COLLECTED 09/10/20 09:40 Blood Culture - Preliminary Blood SPECIMEN COLLECTED 09/07/20 12:10 Blood Culture - Preliminary Blood Methicillin Resis Staph Aureus Corynebacterium species A&P Assessment and plan (1) Hypothyroidism: TSH : 15 Repaet TSH : 14.69 Free T4 : 0.18 Free T3: 0.8 Levothyroxine 25 mcg po Daily Repeat TSH in 6 weeks . For dose adjustment Status: Acute (2) Hypertensive urgency: Currently blood Pressure is well controlled. Amlodipine 10 mg po daily Clonidine 0.1 mg po TID Hydralazine 25 mg PO TID Labetalol I.V PRN Status: Acute (3) Acute metabolic encephalopathy: Ac Encephalopathy toxic/Metabolic:Resolved Continue with I.V Hydration Correct electrolyte imbalance Follow cultures Levofloxacin 750 mg I.V daily Continue to monitor the mentation. Status: Acute (4) [place]domyolysis: [place] [address] Continue NS @ 300 CC/HR Monitor electrolytes and Kidney function. Monitor urine output. Status: Acute (5) Seizure: Likely 2/2 to drug overdose S/P 1 gm keppra in ER. Has no prior episode of seizure. Will continue to monitor for now' Ativan PRN, Status: Acute (6) Pneumonia: Aspiration PNA/Pneumonitis. Plan as 1 Status: Acute (7) Drug overdose: Status: Acute (8) Lactic acidosis: Status: Acute (9) Hyponatremia: Status: Acute (10) Hypokalemia: Status: Acute Additional A&P Information DVT PPX: Lovenox 40 mg sc daily Code status : Disposition Attestations Medical Necessity Statement*: Patient needs to be in hospital for the man agement of rhabdomyolysis. Coding Level of Care Code Acute Collar Closer Lockstitch for [facility] Diagnoses Hypothyroidism E03.9 Hypertensive urgency I16.0 Acute metabolic encephalopathy G93.41 Rhabdomyolysis M62.82 Seizure R56.9 Pneumonia J18.9 Drug overdose T50.901A Lactic acidosis E87.2 Hyponatremia E87.1 Hypokalemia E87.6
[2020-09-10] MEDS: sodium chloride 0.9% 1,000 ML 300 ML IV (20:17)
[2020-09-10] MEDS: enoxaparin 40 mg/0.4 mL Syringe SUBCUT (21:48)
[2020-09-10] MEDS: hyDRALAzine 50 mg Tablet 25 MG PO (21:49)
[2020-09-10] MEDS: sodium chloride 1 gm Tablet PO (21:51)
[2020-09-11] VITALS (10 sets, daily range): BP systolic 134–156; BP diastolic 72–87; PULSE 72–82; RESP 17–20; TEMP 36.6–37.4; O2SAT 95–99; BMI 32.4
[2020-09-11] MEDS: sodium chloride 0.9% 1,000 ML 300 ML IV ×2 (00:27→03:45)
[2020-09-11 07:19] LABS: Creatine Phosphokinase 18681 U/L (39-308)
--- NOTE | 2020-09-11 07:28 | PC.NURSE ---
Dr. Kwon notified of critical CK results.
[2020-09-11 07:51] LABS: Alanine Aminotransferase 58 U/L (0-41); Albumin Level 4.2 g/dL (3.5-5.2); Alkaline Phosphatase 59 IU/L (40-130); Blood Urea Nitrogen 6 mg/dL (8-23); Calcium 8.8 mg/dL (8.5-10.5); Carbon Dioxide 15 mmol/L (22-29); Chloride 93 mmol/L (98-107); Glucose 69 mg/dL (65-115); Osmolality Calculated 250 mOsm/kg (285-295); Sodium 122 mmol/L (136-145); Total Bilirubin 0.7 mg/dL (0.15-1.2); Total Protein 7.2 g/dL (6.6-8.7)
[2020-09-11 08:09] LABS: Anion Gap 17.6 (5-19); Aspartate Amino Transferase 228 U/L (0-40); Potassium 3.6 mmol/L (3.5-5.1)
[2020-09-11] MEDS: acetaminophen 325 mg Tablet 650 MG PO (09:07)
[2020-09-11] MEDS: levothyroxine 25 mcg Tablet PO (09:07)
[2020-09-11] MEDS: hyDRALAzine 50 mg Tablet 25 MG PO ×3 (09:07→20:30)
[2020-09-11] MEDS: sodium chloride 1 gm Tablet PO ×2 (09:07→17:31)
[2020-09-11] MEDS: amlodipine 5 mg Tablet 10 MG PO (09:08)
[2020-09-11] MEDS: cloNIDine 0.1 mg Tablet PO ×3 (09:08→20:30)
[2020-09-11] MEDS: hydrocortisone 1% cream 28 gm 1 APPLIC TOPICAL ×3 (09:09→17:28)
--- NOTE | 2020-09-11 11:25 | PC.NURSE ---
discharge education provided. pt verbalizes understanding of home medications, incision care, discharge instructions, and followup appointments. pt is calling his ride
[2020-09-11] MEDS: sodium chloride 0.9% 1,000 ML 100 ML IV (11:52)
--- NOTE | 2020-09-11 17:11 | PM.PN ---
Subjective Subjective: Interval history: Chart reviewed. T-max 99.4 Fahrenheit. Hemodynamically stable. Blood culture from September 07 with MRSA and corynebacterium species in 2 out of 3 bottles. Started on IV vancomycin today Medications: Reviewed: Yes Vitals/I&O/Wt Last Vital Signs Temp 98.7 F 09/11/20 15:24 Pulse 75 09/11/20 15:24 Resp 19 H 09/11/20 15:24 BP 134/87 09/11/20 15:24 Pulse Ox 96 09/11/20 15:24 09/11/20 09/11/20 09/11/20 06:59 14:59 22:59 Intake Total 2120 / 6045 Output Total 1500 / 3050 500 / 500 Balance 620 / 2995 -500 / -500 Weight last 48 hrs Weight 102.512 kg Weight 102.603 kg Physical Exam Narrative: EXAM NARRATIVE: GEN: Awake, alert and oriented, no acute distress CVS: S1S2 N RS: CTA B/L Abd: Soft, nt/nd , bs+ DIRECTOR REACTOR PROJECTS: no focal neuro deficits Extremities: No peripheral stigmata of endocarditis. Multiple track joe noted over bilateral arms, I am uncertain how many of these are from IV attempts in the emergency room versus how many of them were present prior to admission. Denies any IV drug use to me. Data : 09/10/20 04:34 09/11/20 06:00 Micro: Microbiology 09/10/20 09:40 Blood Culture - Preliminary Blood NEGATIVE TO DATE 09/10/20 09:40 Blood Culture - Preliminary Blood NEGATIVE TO DATE A&P Assessment and plan (1) MRSA bacteremia: started iv vancomycin 09/11 check echo to r/o vegetations unclear source, denies IVDU, no orthopedic or cardiac hardware in place Status: Acute (2) Hypothyroidism: continue Levothyroxine 25 mcg po Daily, this is new medication for him Repeat TSH in 6 weeks . For dose adjustment Status: Acute (3) Hypertensive urgency: Currently blood Pressure is well controlled. Amlodipine 10 mg po daily Clonidine 0.1 mg po TID Hydralazine 25 mg PO TID Labetalol I.V PRN Status: Acute (4) Acute metabolic encephalopathy: Ac Encephalopathy toxic/Metabolic:Resolved Continue with I.V Hydration Correct electrolyte imbalance Discontinue Levofloxacin 750 mg I.V daily Start iv vancomycin given MRSA bacteremia Status: Acute (5) Rhabdomyolysis: CPK elevated, likely was down on the floor for an extended time, uncertain how he got here to the hospital Continue NS, reduce rate from 300 to 125 cc/hr Monitor electrolytes and Kidney function. Monitor urine output. Status: Acute (6) Seizure: Likely 2/2 to drug overdose S/P 1 gm keppra in ER. Has no prior episode of seizure. Will continue to monitor for now Ativan PRN, Status: Acute (7) Pneumonia: Likely aspiration PNA on admission Currently on levaquin, day 5 today, completed course Check covid AG screen given pneumonitis Status: Acute (8) Drug overdose: Status: Acute (9) Lactic acidosis: Status: Acute (10) Hyponatremia: Status: Acute (11) Hypokalemia: Status: Acute Additional A&P Information DVT PPX: Lovenox 40 mg sc daily Code status : Full code Disposition: Home when ready Attestations Medical Necessity Statement*: iv hydration for rhabdomyolysis, iv abx for MRSA bacteremia Coding Level of Care Code Acute Gis Analyst Developer for [facility] Fwd Diagnoses MRSA bacteremia R78.81; B95.62 Hypothyroidism E03.9 Hypertensive urgency I16.0 Acute metabolic encephalopathy G93.41 Rhabdomyolysis M62.82 Seizure R56.9 Pneumonia J18.9 Drug overdose T50.901A Lactic acidosis E87.2 Hyponatremia E87.1 Hypokalemia E87.6
[2020-09-11] MEDS: vancomycin 1,500 MG/300 ML PIGGYBACK 200 MG IV (17:29)
--- NOTE | 2020-09-11 17:31 | CTR_ITS ---
PROCEDURE INFORMATION: Exam: CT Lumbar Spine Without Contrast Exam date and time: 09/11/2020 5:47 PM Age: 60 years old Clinical indication: Low back pain; Additional info: MRSA bacteremia, spurce evalution TECHNIQUE: Imaging protocol: Computed tomography images of the lumbar spine without contrast. Radiation optimization: All CT scans at this facility use at least one of these dose optimization techniques: automated exposure control; mA and/or kV adjustment per patient size (includes targeted exams where dose is matched to clinical indication); or iterative reconstruction. COMPARISON: No relevant prior studies available. RADIATION DOSE METRICS: Total DLP (mGy-cm): 2155.89 FINDINGS: Vertebrae: Bilateral L5 pars defects. No significant listhesis. No acute fracture. Discs/Spinal canal/Neural foramina: Small disc bulges measuring 2-3 mm throughout the lumbar spine. Mild to moderate facet arthrosis, greatest at L3-L4 and below. Mild bilateral foraminal stenosis at L3-L4, L4-L5 and L5-S1. No significant canal stenosis. Sacrum/coccyx: A 1.9 cm Tarlov cyst at the right at S3 level. Soft tissues: Unremarkable. CT/CT lumbar spine wo con* [id number] IMPRESSION: 1. No acute abnormality. 2. Mild multilevel degenerative changes of the discs with mild foraminal stenosis at L3-L4 and below. 3. Mild to moderate facet arthritis, greatest L3-L4 and below. 4. A 1.9 cm Tarlov cyst at the right S3 level. Radiation Dose CTDIVOL = (mGy): DLP = 2155.89 (mGy-cm)
--- NOTE | 2020-09-11 17:31 | CTR_ITS ---
PROCEDURE INFORMATION: Exam: CT Thoracic Spine Without Contrast Exam date and time: 09/11/2020 5:47 PM Age: 60 years old Clinical indication: Pain in thoracic spine; Additional info: MRSA bacteremia, spurce evalution TECHNIQUE: Imaging protocol: Computed tomography images of the thoracic spine without contrast. Radiation optimization: All CT scans at this facility use at least one of these dose optimization techniques: automated exposure control; mA and/or kV adjustment per patient size (includes targeted exams where dose is matched to clinical indication); or iterative reconstruction. COMPARISON: No relevant prior studies available. RADIATION DOSE METRICS: Total DLP (mGy-cm): 2182.36 FINDINGS: Vertebrae: No acute fracture. Normal alignment. Discs/Spinal canal/Neural foramina: No significant disc protrusion. Mild multilevel disc space narrowing with early anterior osteophytosis. Mild scattered facet arthrosis. No severe spinal canal stenosis. No significant neural foraminal narrowing. Soft tissues: Unremarkable. CT/CT thoracic spin wo con* [id number] IMPRESSION: 1. No acute abnormalities. 2. Mild multilevel degenerative changes. Radiation Dose CTDIVOL = (mGy): DLP = 2182.36 (mGy-cm)
--- NOTE | 2020-09-11 17:31 | CTR_ITS ---
PROCEDURE INFORMATION: Exam: CT Cervical Spine Without Contrast Exam date and time: 09/11/2020 5:47 PM Age: 60 years old Clinical indication: Neck pain; Additional info: MRSA bacteremia, spurce evalution TECHNIQUE: Imaging protocol: Computed tomography images of the cervical spine without contrast. Radiation optimization: All CT scans at this facility use at least one of these dose optimization techniques: automated exposure control; mA and/or kV adjustment per patient size (includes targeted exams where dose is matched to clinical indication); or iterative reconstruction. COMPARISON: No relevant prior studies available. RADIATION DOSE METRICS: Total DLP (mGy-cm): 1241.89 FINDINGS: Bones/joints: No acute fracture. Normal alignment. Discs/Spinal canal/Neural foramina: Small disc osteophyte complexes greatest at C5-C6 and C6-C7. Mild vertebral and facet arthrosis. Mild right foraminal stenosis C3-C4. No definite canal stenosis. Lungs: Lung apices are normal. Soft tissues: Unremarkable. CT/CT cervical spin wo con* [id number] IMPRESSION: No acute findings. Mild multilevel degenerative changes greatest at C3-C4 and C5-C6. Radiation Dose CTDIVOL = (mGy): DLP = 1241.89 (mGy-cm)
[2020-09-11 18:18] LABS: SARS Covid-2 Antigen Negative (Negative)
[2020-09-11] MEDS: enoxaparin 40 mg/0.4 mL Syringe SUBCUT (20:30)
[2020-09-11] MEDS: sodium chloride 0.9% 1,000 ML 125 ML IV (23:53)
[2020-09-12] VITALS (10 sets, daily range): BP systolic 114–162; BP diastolic 57–77; PULSE 68–89; RESP 16–18; TEMP 36.6–37.7; O2SAT 93–97
--- NOTE | 2020-09-12 04:00 | USCV_ITS ---
Parmjit Zimmer Age: 60 Gender: M : 1960 Exam Date: 09/12/2020 06:19 Ordering Phys: Sandra Cordova MD Technologist: Mo Garvin Exam Location: [facility] [place] Indication: MRSA BACTEREMIA BP: 165 / 75 HR: 77 Rhythm: Sinus Technical Quality: POOR MEASUREMENTS (Male / Female) Normal Values 2D ECHO LV Diastolic Diameter PLAX 2.5 cm 4.2 - 5.9 / 3.9 - 5.3 cm LV Systolic Diameter PLAX 2.0 cm IVS Diastolic Thickness 0.9 cm 0.6 - 1.0 / 0.6 - 0.9 cm IVS Systolic Thickness 1.0 cm LVPW Diastolic Thickness 0.9 cm 0.6 - 1.0 / 0.6 - 0.9 cm LVPW Systolic Thickness 1.3 cm LVOT Diameter 2.1 cm LV Ejection Fraction 2D Teich 44.9 % LA Diameter 3.6 cm LA Width 3.8 cm LA Height 4.5 cm RA Width 3.2 cm RA Height 4.6 cm Aorta at Sinotubular Diameter 2.4 cm M-MODE LV Diastolic Diameter MM 4.3 cm 4.2 - 5.9 / 3.9 - 5.3 cm LV Systolic Diameter MM 2.8 cm LV Ejection Fraction MM Teich 64.4 % IVS Diastolic Thickness MM 1.0 cm 0.6 - 1.0 / 0.6 - 0.9 cm IVS Systolic Thickness MM 1.6 cm LVPW Diastolic Thickness MM 1.1 cm 0.6 - 1.0 / 0.6 - 0.9 cm LVPW Systolic Thickness MM 1.6 cm RV Diastolic Diameter MM 1.3 cm Aortic Annulus Diameter 3.8 cm LA Ao Ratio MM 1.0 MV E Point Septal Separation 0.8 cm DOPPLER AV Peak Velocity 130.0 cm/s LVOT Peak Velocity 109.0 cm/s AV Area Cont Eq vti 3.1 cm squared AV Area Cont Eq pk 3.0 cm squared MV Area PHT 5.0 cm squared Mitral E to A Ratio 0.8 MV E' Velocity 35.5 cm/s Mitral E to MV E' Ratio 8.3 Mitral E to LV E' Lateral Ratio 5.9 Mitral E to LV E' Septal Ratio 13.9 TR Peak Velocity 131.0 cm/s TR Peak Gradient 6.9 mmHg TV Peak E Velocity 68.0 cm/s Right Atrial Pressure 3.0 mmHg Pulmonary Artery Systolic Pressu 9.9 mmHg PV Peak Velocity 126.0 cm/s FINDINGS Left Ventricle Normal left ventricular cavity size. Normal left ventricular systolic function. No regional wall motion abnormalities. Left ventricular ejection fraction is estimated at 64 %. Grade I/IV diastolic dysfunction (abnormal relaxation filling pattern), normal to mildly elevated filling pressures. Right Ventricle The right ventricle is normal in size and function. Right Atrium The right atrium is normal in size. Left Atrium The left atrium is normal in size. Mitral Valve Moderately thickened mitral valve. Moderate mitral annular calcification. No mitral valve stenosis. No mitral valve regurgitation. Aortic Valve Moderate aortic valve calcification. No aortic valve stenosis. Trace aortic valve regurgitation. Tricuspid Valve Structurally normal tricuspid valve without significant stenosis or regurgitation. Pulmonary artery systolic pressure is normal. Pulmonic Valve Structurally normal pulmonic valve without significant stenosis. There is no pulmonic regurgitation. Pericardium Normal pericardium without effusion. Aorta Normal ascending aorta dimension. CONCLUSIONS 1-Normal left ventricular cavity size. Normal left ventricular systolic function. No regional wall motion abnormalities. Left ventricular ejection fraction is estimated at 64 %. Grade I/IV diastolic dysfunction (abnormal relaxation filling pattern), normal to mildly elevated filling pressures. 2-Moderately thickened mitral valve. Moderate mitral annular calcification. No mitral valve stenosis. No mitral valve regurgitation. 3-Moderate aortic valve calcification. No aortic valve stenosis. Trace aortic valve regurgitation. 4-There is no pericardial effusion. 5-Pulmonary artery systolic pressure is within normal limits. 6-There are no prior echocardiogram studies to compare. Michelle Coleman MD (Electronically Signed) Final Date: 12 September 2020 18:37 S
[2020-09-12] MEDS: vancomycin 1,500 MG/300 ML PIGGYBACK 200 MG IV (05:46)
[2020-09-12] MEDS: levothyroxine 25 mcg Tablet PO (05:46)
[2020-09-12 06:13] LABS: Basophils % 0.6 %; Eosinophils # 0.1 10^3/uL (0.0-0.8); Eosinophils % 3.3 %; Hematocrit 31.2 % (42.0-52.0); Hemoglobin 11.2 g/dL (11.7-16.6); Lymphocytes # 0.9 10^3/uL (0.8-4.8); Lymphocytes % 24.4 %; Mean Corpuscular HGB Conc 35.9 g/dL (30.0-36.0); Mean Corpuscular Volume 89.1 fL (80-94); Mean Platelet Volume 12.1 fL (7.4-10.4); Monocytes # 0.3 10^3/uL (0.2-0.9); Monocytes % 9.2 %; Neutrophils # 2.23 10^3/uL (1.8-7.7); Neutrophils % 61.9 %; Nucleated Red Blood Cells % 0 %; Platelet Count 171 10^3/cmm (130-400); Red Cell Distribution Width 12.3 % (12.1-15.1); White Blood Count 3.6 10^3/uL (4.0-10.0)
--- NOTE | 2020-09-12 06:35 | PM.PN ---
Subjective Subjective: Interval history: afberile, no new complaints. f/up blood cx thus far with no growth Medications: Reviewed: Yes Vitals/I&O/Wt Last Vital Signs Temp 98.4 F 09/13/20 04:00 Pulse 65 09/13/20 04:00 Resp 16 09/13/20 04:00 BP 143/74 09/13/20 04:00 Pulse Ox 98 09/13/20 04:00 09/12/20 09/12/20 09/13/20 14:59 22:59 06:59 Intake Total 1470 / 1470 1251.25 / 2721.25 1245.833 / 3967.083 Output Total 250 / 250 200 / 450 Balance 1470 / 1470 1001.25 / 2471.25 1045.833 / 3517.083 Weight last 48 hrs Weight 91.172 kg Weight 102.24 kg Physical Exam Narrative: EXAM NARRATIVE: GEN: Awake, alert and oriented, no acute distress CVS: S1S2 N RS: CTA B/L Abd: Soft, nt/nd , bs+ FORK REPAIRER: no focal neuro deficits Extremities: No peripheral stigmata of endocarditis. Multiple track joe noted over bilateral arms, I am uncertain how many of these are from IV attempts in the emergency room versus how many of them were present prior to admission. Denies any IV drug use to me. Data : 09/12/20 05:10 09/12/20 05:10 Micro: Microbiology 09/07/20 12:10 Blood Culture - Final Blood Methicillin Resis Staph Aureus Corynebacterium species 09/07/20 11:55 Blood Culture - Final Blood NO GROWTH AFTER 5 DAYS A&P Assessment and plan (1) MRSA bacteremia: started iv vancomycin 09/11 check echo to r/o vegetations unclear source, denies IVDU, no orthopedic or cardiac hardware in place Status: Acute (2) Hypothyroidism: continue Levothyroxine 25 mcg po Daily, this is new medication for him Repeat TSH in 6 weeks . For dose adjustment Status: Acute (3) Hypertensive urgency: Currently blood Pressure is well controlled. Amlodipine 10 mg po daily Clonidine 0.1 mg po TID Hydralazine 25 mg PO TID Labetalol I.V PRN Status: Acute (4) Acute metabolic encephalopathy: Ac Encephalopathy toxic/Metabolic:Resolved Continue with I.V Hydration Correct electrolyte imbalance Discontinue Levofloxacin 750 mg I.V daily Start iv vancomycin given MRSA bacteremia Status: Acute (5) Rhabdomyolysis: CPK elevated, likely was down on the floor for an extended time, uncertain how he got here to the hospital Continue NS, reduce rate from 300 to 125 cc/hr Monitor electrolytes and Kidney function. Monitor urine output. Status: Acute (6) Seizure: Likely 2/2 to drug overdose S/P 1 gm keppra in ER. Has no prior episode of seizure. Will continue to monitor for now Ativan PRN, Status: Acute (7) Pneumonia: Likely aspiration PNA on admission Currently on levaquin, day 5 today, completed course Check covid AG screen given pneumonitis Status: Acute (8) Drug overdose: Status: Acute (9) Lactic acidosis: Status: Acute (10) Hyponatremia: Status: Acute (11) Hypokalemia: Status: Acute Additional A&P Information DVT PPX: Lovenox 40 mg sc daily Code status : Full code Disposition: Home when ready Attestations Medical Necessity Statement*: need for iv abx, follow up of blood cx Coding Level of Care Code Acute Greens Laborer for g Fwd Diagnoses MRSA bacteremia R78.81; B95.62 Hypothyroidism E03.9 Hypertensive urgency I16.0 Acute metabolic encephalopathy G93.41 Rhabdomyolysis M62.82 Seizure R56.9 Pneumonia J18.9 Drug overdose T50.901A Lactic acidosis E87.2 Hyponatremia E87.1 Hypokalemia E87.6
[2020-09-12 06:46] LABS: Alanine Aminotransferase 64 U/L (0-41); Albumin Level 3.9 g/dL (3.5-5.2); Alkaline Phosphatase 55 IU/L (40-130); Anion Gap 14.2 (5-19); Aspartate Amino Transferase 253 U/L (0-40); Blood Urea Nitrogen 7 mg/dL (8-23); Calcium 8.6 mg/dL (8.5-10.5); Carbon Dioxide 19 mmol/L (22-29); Chloride 94 mmol/L (98-107); Globulin 2.9 g/dL (1.3-4.6); Glucose 70 mg/dL (65-115); Osmolality Calculated 254 mOsm/kg (285-295); Potassium 3.2 mmol/L (3.5-5.1); Sodium 124 mmol/L (136-145); Total Bilirubin 0.6 mg/dL (0.15-1.2); Total Protein 6.8 g/dL (6.6-8.7)
[2020-09-12 06:59] LABS: C Reactive Protein 29.1 mg/L (0.0-4.9)
[2020-09-12 07:18] LABS: Erythrocyte Sedimentation Rate 30 mm/hr (0-10)
[2020-09-12] MEDS: hyDRALAzine 50 mg Tablet 25 MG PO ×3 (08:59→20:23)
[2020-09-12] MEDS: sodium chloride 1 gm Tablet PO ×2 (08:59→17:33)
[2020-09-12] MEDS: amlodipine 5 mg Tablet 10 MG PO (08:59)
[2020-09-12] MEDS: cloNIDine 0.1 mg Tablet PO ×3 (08:59→20:24)
[2020-09-12] MEDS: hydrocortisone 1% cream 28 gm 1 APPLIC TOPICAL ×4 (09:03→20:23)
[2020-09-12] MEDS: sodium chloride 0.9% 1,000 ML 125 ML IV ×2 (10:30→17:33)
[2020-09-12 16:57] LABS: Vancomycin Trough 8.9 ug/mL (10-15)
[2020-09-12] MEDS: vancomycin 1,250 MG/250 ML PIGGYBACK 200 MG IV (18:40)
[2020-09-12] MEDS: enoxaparin 40 mg/0.4 mL Syringe SUBCUT (20:25)
[2020-09-13] VITALS (12 sets, daily range): BP systolic 117–178; BP diastolic 65–81; PULSE 64–80; RESP 16–20; TEMP 36.6–37.2; O2SAT 95–98
[2020-09-13] MEDS: vancomycin 1,250 MG/250 ML PIGGYBACK 200 MG IV ×3 (02:08→17:45)
[2020-09-13] MEDS: levothyroxine 25 mcg Tablet PO (06:13)
[2020-09-13] MEDS: sodium chloride 0.9% 1,000 ML 125 ML IV ×2 (06:14→18:03)
[2020-09-13] MEDS: hyDRALAzine 50 mg Tablet 25 MG PO ×3 (09:10→21:14)
[2020-09-13] MEDS: cloNIDine 0.1 mg Tablet PO ×3 (09:10→21:14)
[2020-09-13] MEDS: sodium chloride 1 gm Tablet PO ×2 (09:10→17:45)
[2020-09-13] MEDS: amlodipine 5 mg Tablet 10 MG PO (09:10)
[2020-09-13] MEDS: hydrocortisone 1% cream 28 gm 1 APPLIC TOPICAL ×4 (09:11→21:19)
[2020-09-13 10:10] LABS: Vancomycin Trough 17.3 ug/mL (10-15)
[2020-09-13] MEDS: enoxaparin 40 mg/0.4 mL Syringe SUBCUT (21:13)
[2020-09-14] VITALS (9 sets, daily range): BP systolic 110–171; BP diastolic 47–84; PULSE 68–86; RESP 18; TEMP 36.6–37; O2SAT 92–97
[2020-09-14] MEDS: vancomycin 1,250 MG/250 ML PIGGYBACK 200 MG IV ×2 (01:09→09:03)
[2020-09-14] MEDS: sodium chloride 0.9% 1,000 ML 125 ML IV ×2 (05:36→13:56)
[2020-09-14] MEDS: levothyroxine 25 mcg Tablet PO (06:27)
[2020-09-14 06:48] LABS: Basophils % 0.6 %; Eosinophils # 0.2 10^3/uL (0.0-0.8); Eosinophils % 5.8 %; Hematocrit 33.6 % (42.0-52.0); Hemoglobin 11.8 g/dL (11.7-16.6); Lymphocytes % 29.2 %; Mean Corpuscular HGB Conc 35.1 g/dL (30.0-36.0); Mean Corpuscular Hemoglobin 31.6 pg (28.0-34.0); Mean Corpuscular Volume 89.8 fL (80-94); Monocytes # 0.3 10^3/uL (0.2-0.9); Monocytes % 7.8 %; Neutrophils # 1.95 10^3/uL (1.8-7.7); Neutrophils % 56.3 %; Nucleated Red Blood Cells % 0 %; Platelet Count 185 10^3/cmm (130-400); Red Blood Count 3.74 10^6/uL (4.1-5.3); Red Cell Distribution Width 12.5 % (12.1-15.1); White Blood Count 3.5 10^3/uL (4.0-10.0)
[2020-09-14 07:04] LABS: Alanine Aminotransferase 57 U/L (0-41); Albumin Level 4.3 g/dL (3.5-5.2); Alkaline Phosphatase 62 IU/L (40-130); Aspartate Amino Transferase 217 U/L (0-40); Blood Urea Nitrogen 4 mg/dL (8-23); Carbon Dioxide 17 mmol/L (22-29); Chloride 100 mmol/L (98-107); Globulin 3.1 g/dL (1.3-4.6); Glomerular Filtration Rate 136.5 mL/min (90-130); Glucose 90 mg/dL (65-115); Osmolality Calculated 268 mOsm/kg (285-295); Sodium 131 mmol/L (136-145); Total Bilirubin 0.5 mg/dL (0.15-1.2); Total Protein 7.4 g/dL (6.6-8.7)
[2020-09-14 07:36] LABS: Creatine Phosphokinase 10955 U/L (39-308)
[2020-09-14] MEDS: hyDRALAzine 50 mg Tablet 25 MG PO ×2 (08:59→15:51)
--- NOTE | 2020-09-14 08:59 | PC.SOCIAL ---
IMM Update Pg.2 of IMM updated and reviewed with patient who verbalized understanding. Copy provided.
[2020-09-14] MEDS: cloNIDine 0.1 mg Tablet PO ×2 (09:01→15:51)
[2020-09-14] MEDS: amlodipine 5 mg Tablet 10 MG PO (09:01)
[2020-09-14] MEDS: hydrocortisone 1% cream 28 gm 1 APPLIC TOPICAL ×2 (09:02→13:56)
[2020-09-14] MEDS: sodium chloride 1 gm Tablet PO (09:02)
--- NOTE | 2020-09-14 11:11 | PM.DCS ---
Discharge Providers Date of Admission: 09/07/20 13:16 Date of Discharge: September 14, 2020 Attending Provider at Admission: Brock Kwon MD Attending Provider at Discharge: Sandra Cordova MD Diagnoses at Discharge Discharge Diagnosis (1) MRSA bacteremia: Status: Acute (2) Hypothyroidism: Status: Acute (3) Hypertensive urgency: Status: Acute (4) Acute metabolic encephalopathy: Status: Acute (5) Rhabdomyolysis: Status: Acute (6) Seizure: Status: Acute (7) Pneumonia: Status: Acute (8) Drug overdose: Status: Acute (9) Lactic acidosis: Status: Acute (10) Hyponatremia: Status: Acute (11) Hypokalemia: Status: Acute Reason for Visit Reason for Visit: [facility] Hospital Course Hospital Course This is a 60-year-old male who was brought to the emergency room on September 07, 2020 after he called his family and informed them that he overdosed on marijuana. in the ER he had a witnessed seizure-like episode and was loaded with Keppra and also received Ativan. There were no further repeat episodes of seizures. CT head did not show any acute intracranial pathology. Chest x-ray showed mild bibasilar pneumonitis, may be related to aspiration. Rapid Covid antigen was negative. Upon admission lactate was elevated at 6 which eventually trended down. Hospital course also notable for development of rhabdomyolysis which was treated with IV hydration, CPK trending down significantly on day of discharge. Additionally blood culture from the day of admission returned with positive for MRSA and corynebacterium species. While these could certainly represent contamination, with the presence of MRSA in the bloodstream and presentation with acute encephalopathy, could not completely exclude sepsis from MRSA. CT of the spine was performed as part of source evaluation, no discitis or osteomyelitis was noted. TTE was negative for any vegetations. Patient does not have any indwelling orthopedic or cardiac hardware. Source of potential bacteremia remains unclear. Repeat blood cultures have been negative. He has been advised treatment with 2 weeks of IV vancomycin for MRSA bacteremia.(Day 1 is September 11), this will be completed with transition to [facility] facility. Vancomycin trough was checked prior to discharge and it is recommended to check this twice a week after discharge as well. There were no further witnessed seizure episodes therefore Keppra was not continued, thought to be related to acute intoxication. Additionally noted to be hypertensive for which medications including amlodipine, hydralazine and clonidine were added. Physical Exam Narrative: EXAM NARRATIVE: GEN: Awake, alert and oriented, no acute distress CVS: S1S2 N RS: CTA B/L Abd: Soft, nt/nd , bs+ SQL REPORT WRITER: no focal neuro deficits Discharge Data Data Completed and Pending: Completed Studies During Hospitalization Category Date Time Status CT cervical spin wo con* 89286 Rout ine Cat Scan 09/11/20 17:[address] head wo con* 7 0450 Stat Cat Scan 09/07/20 10:[address] lumbar spine w o con* 31108 Routi ne Cat Scan 09/11/20 17:[address] thoracic spin wo con* 23930 Rout ine Cat Scan 09/11/20 17:31 Completed XR chest 1V racheal ble 99636 Stat Exams 09/07/20 10:53 Completed CV echo complete* [id number] Routine Ultrasound 09/12/20 04:00 Completed Pending at discharge Category Date Time Status Blood Culture Sta t Lab 09/10/20 09:40 Results Labs from last 24 hours 09/14/20 09/14/20 06:37 06:37 WBC 3.5 L RBC 3.74 L Hgb 11.8 Hct 33.6 L MCV 89.8 MCH 31.6 MCHC 35.1 RDW 12.5 Plt Count 185 MPV 11.0 H Neut % (Auto) 56.3 Lymph % (Auto) 29.2 [facility] [place] [facility] % (Auto) 7.8 Eos % (Auto) 5.8 Baso % (Auto) 0.6 Neut # (Auto) 1.95 Lymph # (Auto) 1.0 [facility] # (Auto) 0.3 Eos # (Auto) 0.2 Baso # (Auto) 0.0 Nucleated RBC % (a uto) 0 Nucleated RBCs # 0.0 Sodium 131 L Potassium 3.0 L Chloride 100 Carbon Dioxide 17 L Anion Gap 17.0 BUN 4 L Creatinine 0.6 L GFR Calculation 136.5 H Glucose 90 Calculated Osmolal ity 268 L Calcium 9.0 Total Bilirubin 0.5 AST 217 H ALT 57 H Alkaline Phosphata se 62 Creatine Kinase 90077 H* Total Protein 7.4 Albumin 4.3 Globulin 3.1 Addt'l Data from Hospital Stay: Microbiology 09/07/20 12:10 Blood Blood Culture - Final Methicillin Resis Staph Aureus Corynebacterium species 09/07/20 11:55 Blood Blood Culture - Final NO GROWTH AFTER 5 DAYS 09/10/20 09:40 Blood Blood Culture - Preliminary NEGATIVE TO DATE 09/10/20 09:40 Blood Blood Culture - Preliminary NEGATIVE TO DATE Vitals: Last Vital Signs Temp 98.4 F 09/14/20 07:31 Pulse 86 09/14/20 07:31 Resp 18 09/14/20 07:31 BP 171/81 09/14/20 09:01 Pulse Ox 97 09/14/20 07:31 Discharge Plan Discharge Patient Disposition: Xfer SNF Condition: Stable Prescriptions: New acetaminophen 325 mg Tablet 650 mg PO Q6H PRN (Reason: Mild/Mod Pain Or Temp >/= 101) 30 Days Qty: 30 RF: 0 clonidine HCl 0.1 mg Tablet 0.1 mg PO TID 30 Days Qty: 90 RF: 0 amlodipine 5 mg Tablet 10 mg PO DAILY 30 Days Qty: 30 RF: 0 levothyroxine 25 mcg Tablet 25 mcg PO QAM 30 Days Qty: 30 RF: 0 hydralazine 50 mg Tablet 25 mg PO TID 30 Days Qty: 45 RF: 0 vancomycin-water inject (PEG) 1.25 gram/250 mL Piggyback 1,250 mg continuous IV infusion Q12H 10 Days Qty: 5000 RF: 0 Discharge Orders: Discharge Order (Routine); Ordered 09/14/20 Ordered By: Sandra Cordova Other Ambulatory Orders: Vancomycin Trough (WEEKLY) Timeframe: 20200917 Location: Determined by Patient Ordered By: Sandra Cordova Referrals: [facility] [Outside] Discharge Diet: Usual diet Discharge Activity: Resume usual activity Discharge Attestations Time Spent in Discharge Care*: greater than 30 min Specific Discharge Activities: educating patient, discussing with bilingual case manager/social workers/dc planners and documenting/other paperwork Quality Metrics Clinical Quality Measures During this hospital stay, did patient experience: None Coding Level of Care Code Acute [employer] for g Fwd Diagnoses MRSA bacteremia R78.81; B95.62 Hypothyroidism E03.9 Hypertensive urgency I16.0 Acute metabolic encephalopathy G93.41 Rhabdomyolysis M62.82 Seizure R56.9 Pneumonia J18.9 Drug overdose T50.901A Lactic acidosis E87.2 Hyponatremia E87.1 Hypokalemia E87.6
--- NOTE | 2020-09-14 16:17 | PC.NURSE ---
20 Guage IV inserted to left wrist today. dated and initialed for SNF antibiotic therapy. Report called to Pamela MONSIVAIS at [facility]. IV vancomycin scheduled to be given every 8 hours for 10 days with a trough to be repeated 09/17/20. This information reported to nurse and verbalized understanding. Patient transported via wheelchair no oxygen per transport services.
== END 2020-09-14 15:30 | disposition skilled nursing facility (03) | DRG 871 ==
LOC: ER 13:55 → ICU 14:04 → MEDSURG 09-09 10:25
PROVIDERS: Admitting Provider Internal Medicine; Emergency Provider Family Medicine; Visit Provider Student in an Organized Health Care Education/Training Program
DX: A41.9 Sepsis, unspecified organism (principal); G92 Toxic encephalopathy; J69.0 Pneumonitis due to inhalation of food and vomit; G40.89 Other seizures; E87.2 Acidosis; M62.82 Rhabdomyolysis; E87.1 Hypo-osmolality and hyponatremia; T40.7X1A Poisoning by cannabis (derivatives), accidental (unintentional), initial encounter; E87.6 Hypokalemia; I16.0 Hypertensive urgency; E03.9 Hypothyroidism, unspecified; B95.62 Methicillin resistant Staphylococcus aureus infection as the cause of diseases classified elsewhere; M54.2 Cervicalgia; M54.5 Low back pain; M54.6 Pain in thoracic spine
CPT/HCPCS: 36415; 36600; 70450; 71045; 72125; 72128; 72131; 80048; 80051; 80053; 80202; 80306; 81003; 82009; 82330; 82550; 82805; 83605; 83690; 83735; 84145; 84439; 84443; 84481; 85025; 85610; 85651; 86140; 87040; 87077; 87186; 87205; 87426; 93306; 96365; 96366; 96367; 96372; 96375; 99291; J1650; J1953; J1956; J2060; J2405; J3370; J3480; J3490; J7030; J7799; Q3014

== ENCOUNTER 2020-09-19 12:32 | Outpatient (CLI) | payer OTHER, MEDICARE, SELFPAY ==
[2020-09-19 15:01] LABS: Vancomycin Trough 28.6 ug/mL (10-15)
== END 2020-09-19 12:33 | disposition home or self-care (01) ==
LOC: LAB 12:34
PROVIDERS: Student in an Organized Health Care Education/Training Program; Visit Provider Internal Medicine
DX: R78.81 Bacteremia (principal); G93.41 Metabolic encephalopathy
CPT/HCPCS: 80202

== ENCOUNTER 2020-09-22 19:24 | Outpatient (CLI) | payer OTHER, MEDICARE, SELFPAY ==
[2020-09-22 21:35] LABS: Vancomycin Trough 25.9 ug/mL (10-15)
== END 2020-09-22 19:25 | disposition home or self-care (01) ==
LOC: LAB 19:27
PROVIDERS: PCP Internal Medicine; Visit Provider Internal Medicine
DX: R78.81 Bacteremia (principal); B95.61 Methicillin susceptible Staphylococcus aureus infection as the cause of diseases classified elsewhere
CPT/HCPCS: 80202

== ENCOUNTER 2020-09-26 05:35 | Outpatient (CLI) | payer OTHER, MEDICARE, SELFPAY ==
[2020-09-26 06:08] LABS: Vancomycin Random 4.8 ug/mL (20.0-40.0)
== END 2020-09-26 05:36 | disposition home or self-care (01) ==
LOC: LAB 05:37
PROVIDERS: PCP Internal Medicine; Visit Provider Internal Medicine
DX: E87.6 Hypokalemia (principal)
CPT/HCPCS: 80202

== ENCOUNTER 2020-09-28 04:41 | Outpatient (CLI) | payer OTHER, SELFPAY ==
[2020-09-28 06:06] LABS: Vancomycin Trough 22.7 ug/mL (10-15)
== END 2020-09-28 04:42 | disposition home or self-care (01) ==
PROVIDERS: PCP Internal Medicine; Visit Provider Internal Medicine
DX: R78.81 Bacteremia (principal)
CPT/HCPCS: 80202

== ENCOUNTER 2020-09-30 07:50 | Outpatient (CLI) | payer OTHER, SELFPAY ==
[2020-09-30 09:12] LABS: Vancomycin Trough 23.7 ug/mL (10-15)
== END 2020-09-30 07:51 | disposition home or self-care (01) ==
LOC: LAB 07:54
PROVIDERS: PCP Internal Medicine; Visit Provider Internal Medicine
DX: R78.81 Bacteremia (principal)
CPT/HCPCS: 80202